=== PATIENT | male | born 1965 | race Caucasian/White ===

== ENCOUNTER 2017-06-25 18:46 | Emergency (ER) | payer OTHER ==
[~2017-06-25] VITALS: Ht 190.5 cm; Wt 125.2 kg
[2017-06-25 19:11] VITALS: TEMP 36.8; Ht 190.5 cm; Wt 125.2 kg
--- NOTE | 2017-06-25 19:44 | EMERGENCY ROOM VISIT NOTE ---
ED Visit Note First contact with patient: 19:16 CHIEF COMPLAINT: Rash on left arm times one hour HISTORY OF PRESENT ILLNESS: Patient is a 52-year-old white male who presents to the emergency department for evaluation of a rash to the left forearm that has been present for about an hour. He states that it occurred almost immediately after folding up a tarp that had been outside in his yard for several months. He denies that there was any brush or debris on the tarp. He believes that he was bitten or stung by an unknown insect. He notes a slightly red, raised, burning rash on the volar aspect of his left forearm, extending slightly up toward the elbow. He cleansed the area with witch yamilet. He denies that it is painful or itching, describes is as a "burning sensation." He states that he held the tarp in both arms, and only has symptoms on the left. REVIEW OF SYSTEMS: Review of systems as per HPI. All other systems reviewed were negative. At least 6 systems reviewed. PMH: Electronic medical records are reviewed and summarized as above/below. See Problem List. SOCIAL HISTORY: Patient lives at home. Nonsmoker. PHYSICAL EXAM: Vital Signs: Reviewed Nurse's notes. CONSTITUTIONAL: Patient is a well-appearing 52-year-old white male who is awake and alert and in no acute distress. INTEGUMENTARY: Examination of the left arm show a blotchy, raised, maculopapular rash. There are small peripheral papules, centrally they appear to have cold last. This extends slightly up the ulnar aspect of the forearm to the elbow. No vesicles, petechiae, no wheals or bullae noted. No lymphangitic streaking. No wrist or elbow joint effusion. Range of motion of the arm is full. The arm is neurovascularly intact. EMERGENCY DEPARTMENT COURSE: The patient was given Benadryl 50 mg and prednisone 60 mg orally. He was given an ice pack. He appears to have a localized reaction to some unknown type of bite or sting. Differential diagnoses also entertained included allergic reaction or contact dermatitis. Rash does not appear to be consistent with an urticarial reaction. He was encouraged to apply a topical hydrocortisone cream to the area if needed. Use Benadryl as needed for itching. Medication reconciliation: I attest that I have personally reviewed the patient' s current medication list. Blood pressure screening : Patient was found to have normal blood pressure on screening and does not require follow-up. Current/Historical Medications Scheduled Cholecalciferol (Vitamin D 1000 Unit), 1,000 INTER.UNIT PO DAILY Simvastatin (Zocor), 0.5 MG PO QPM Allergies Uncoded Allergies: ASA (Allergy, Unknown, unk, 06/25/17) Vital Signs Date Time Temp Pulse Resp B/P (MAP) Pulse Ox O2 Delivery O2 Flow Rate FiO2 06/25/17 19:55 90 18 116/78 95 06/25/17 19:11 36.8 115 18 96 Room Air Medications Administered Medications (Trade) Dose Ordered Sig/Evelia Route Start Time Stop Time Status Last Admin Dose Admin Prednisone (PredniSONE TAB) 60 mg NOW STAT PO 06/25/17 19:33 06/25/17 19:34 DC 06/25/17 19:54 60 MG Diphenhydramine HCl (Benadryl Cap) 50 mg NOW STAT PO 06/25/17 19:33 06/25/17 19:34 DC 06/25/17 19:54 50 MG Departure Information Impression Primary Impression: Insect bites Referrals No Doctor, Assigned (PCP) Patient Instructions My [facility] Additional Instructions DO NOT drive, drink alcohol, operate machinery, or perform dangerous activities today. You were given medications in the ER that can affect your ability to safely function or operate a vehicle. May apply a topical oatd-nki-xexkris hydrocortisone cream to the affected area as needed. Diphenhydramine(Benadryl) 25mg: use 25 to 50 mg as needed every six hours for swelling, itching, or hives. This medication is sedating and will cause drowsiness. Avoid alcohol, operating machinery or dangerous equipment, working on ladders or roofs, DRIVING, or situations where being under the influence may be dangerous. Cool compresses as needed. Read all the package inserts or medication information paperwork provided. If you have any questions or concerns call your primary provider, pharmacist or the ER for assistance. Continue current medications. Return to the emergency department for worsening of your rash, swelling of your face, lips, tongue, or throat, difficulty breathing, vomiting, or as needed. Follow-up with your primary care physician in 2-3 days for a recheck of your current condition. Problem Qualifiers Primary Impression: Insect bites Encounter type: initial encounter Qualified Codes: W57.XXXA - Bitten or stung by nonvenomous insect and other nonvenomous arthropods, initial encounter
[2017-06-25 19:55] VITALS: BP 116/78; PULSE 90; O2SAT 95
[2017-06-25] MEDS ORDERED: CHOL100027 PO (19:57)
[2017-06-25] MEDS ORDERED: SIMV10TA2 PO (19:57)
== END 2017-06-25 19:56 | disposition home or self-care (01) ==
LOC: C.EDB 18:47 → C.EDD 19:56
DX: S50.862A Insect bite (nonvenomous) of left forearm, initial encounter (principal); W57.XXXA Bitten or stung by nonvenomous insect and other nonvenomous arthropods, initial encounter; Y92.017 Garden or yard in single-family (private) house as the place of occurrence of the external cause